=== PATIENT | male | born 1955 | race Caucasian/White ===

== ENCOUNTER 2017-04-30 12:20 | Inpatient (IN) | payer OTHER ==
[~2017-04-30] VITALS: Ht 180.3 cm; Wt 130.8 kg
[2017-04-30] MEDS ORDERED: LOSARTAN POTAS100 MG PO (14:29)
[2017-04-30] MEDS ORDERED: FURO40 PO (14:31)
[2017-04-30] MEDS ORDERED: ATORVASTATIN CA40 MG PO (14:31)
[2017-04-30] MEDS ORDERED: GLIP5 PO (14:32)
[2017-04-30] MEDS ORDERED: POTCHL20ER PO (14:33)
[2017-04-30] MEDS ORDERED: TRAZ100 PO (14:33)
[2017-04-30] MEDS ORDERED: Acetaminophen325 M1 PO (14:34)
[2017-05-01 07:53] LABS: BASOPHILS ABSOLUTE AUTO 0.03 K/mm3 (0.00-0.23); BASOPHILS PERCENT AUTO 1 % (0-2); EOSINOPHILS PERCENT AUTO 3 % (0-6); Hematocrit 39.6 % (37.0-53.0); Hemoglobin 12.7 g/dL (13.5-17.5); IMMATURE GRAN ABSOLUTE AUTO 0.03 K/mm3 (0.00-0.10); IMMATURE GRAN PERCENT AUTO 1 % (0-1); LYMPHOCYTES ABSOLUTE AUTO 1.63 K/mm3 (0.84-5.20); LYMPHOCYTES PERCENT AUTO 27 % (21-46); MONOCYTES ABSOLUTE AUTO 0.61 K/mm3 (0.16-1.47); MONOCYTES PERCENT AUTO 10 % (4-13); Mean Corpuscular HGB 28.7 pg (26.0-34.0); Mean Corpuscular HGB Conc 32.1 g/dL (31.5-36.5); Mean Corpuscular Volume 90 fL (80-100); Mean Platelet Volume 9.5 fL (9.1-12.4); NEUTROPHILS ABSOLUTE AUTO 3.44 K/mm3 (1.96-9.15); NEUTROPHILS PERCENT AUTO 58 % (41-73); Platelet Count 174 K/mm3 (150-400); RDW Coefficient Variation 13.5 % (11.7-14.2); Red Blood Cell Count 4.42 M/mm3 (4.30-5.90); White Blood Cell Count 5.94 K/mm3 (4.00-11.30)
[2017-05-01 08:08] LABS: Alanine Aminotransfer (ALT/SGP 45 U/L (12-78); Albumin, Blood 3.4 g/dL (3.4-5.0); Alk Phos 60 U/L (50-136); Anion Gap 7 mmol/L (6-16); Aspartate Aminotrans (AST/SGOT 20 U/L (12-37); Bilirubin, Total 0.5 mg/dL (0.1-1.0); Blood Urea Nitrogen 28 mg/dL (8-24); Bun/Creatinine Ratio 29.4 (12.0-20.0); CO2, Blood 28 mmol/L (21-32); CPK Creatine Kinase 79 U/L (39-308); Calcium, Blood 8.3 mg/dL (8.5-10.1); Chloride, Blood 108 mmol/L (98-108); Creatinine, Blood 0.95 mg/dL (0.60-1.20); Globulin, Blood 3.3 g/dL (2.2-4.0); Glomerular Filtration Rate >60 (60-); Glucose, Blood 151 mg/dL (70-99); Magnesium, Blood 2.3 mg/dL (1.6-2.4); Potassium, Blood 3.9 mmol/L (3.5-5.5); Sodium, Blood 143 mmol/L (136-145); Total Protein, Blood 6.7 g/dL (6.4-8.2); Troponin I <0.015 ng/mL (0.000-0.040)
[2017-05-01] MEDS ORDERED: AMLO10 PO (22:31)
[2017-05-01] MEDS ORDERED: ASPI81CH PO (22:31)
== END 2017-05-01 23:03 | disposition home or self-care (01) | DRG 287 ==
LOC: ER 12:20 → MEDS 15:21 → PCU 05-01 17:11
PROVIDERS: Internal Medicine Cardiovascular Disease
PROC: 4A023N7 Measurement of Cardiac Sampling and Pressure, Left Heart, Percutaneous Approach (ICD-10-PCS; principal; 2017-05-01)
PROC: B2111ZZ Fluoroscopy of Multiple Coronary Arteries using Low Osmolar Contrast (ICD-10-PCS; 2017-05-01)
DX: I20.8 Other forms of angina pectoris (principal); E66.01 Morbid (severe) obesity due to excess calories; Z68.41 Body mass index [BMI] 40.0-44.9, adult; I10 Essential (primary) hypertension; R94.39 Abnormal result of other cardiovascular function study; R60.0 Localized edema; E11.9 Type 2 diabetes mellitus without complications; G47.33 Obstructive sleep apnea (adult) (pediatric); R93.1 Abnormal findings on diagnostic imaging of heart and coronary circulation; R00.1 Bradycardia, unspecified; I45.10 Unspecified right bundle-branch block; Z79.84 Long term (current) use of oral hypoglycemic drugs; Z82.49 Family history of ischemic heart disease and other diseases of the circulatory system; Z79.82 Long term (current) use of aspirin; Z79.899 Other long term (current) drug therapy
CPT/HCPCS: 36415; 80053; 82550; 82947; 83735; 84484; 85025; 86850; 86900; 86901; 93005; 93010; 93017; 93306; 93458; 94660; 94762; 99152; 99285; C1769; C1894; J0360; J0690; J1644; J2250; J2405; J3010; J7030; Q9967

== ENCOUNTER 2024-04-23 10:29 | Day surgery (SDC) | payer OTHER ==
[~2024-04-23] VITALS: Ht 180.3 cm; Wt 120.8 kg
[~2024-04-23 10:29] MED LIST: AMLO10 PO; ASPI81CH PO; ATORVASTATIN CA40 MG PO; Acetaminophen325 M1 PO; Balanced Salt Epinephrine Irrigation Solution 500 mL IR SCH; FURO40 PO; GLIP5 PO; LOSARTAN POTAS100 MG PO; Lidocaine HCl/Pf 1% 5 ML VIAL XX SCH; Moxifloxacin HCL 0.5 MG/0.1 ML 0.4MLSYR LEFTEYE SCH; PHENYLEPHRINE\\TROPICAMIDE\\TETRACAINE OPHTHALMIC DILATING SOLN LEFTEYE PRN; POTCHL20ER PO; Povidone-Iodine 450 DROP/30 ML Solution LEFTEYE SCH; Povidone-Iodine 450 DROP/30 ML Solution ONE; TRAZ100 PO; Tetracaine HCl/Pf 0.5% Opth Soln 4 ml ONE; Triamcinolone Inj Susp 40 MG / ML 1ML Vial INJ SCH; Triamcinolone Inj Susp 40 MG / ML 1ML Vial ONE
[2024-04-23] MEDS ORDERED: Diazepam 2 MG Tab ONE (10:33)
[2024-04-23] MEDS ORDERED: Diazepam 5 MG Tab ONE (10:33)
--- NOTE | 2024-04-23 10:47 | NUR ---
04/23/24 [place]7 Stephanie Cha PT STATES ANXIETY IS 07/03.
[2024-04-23] MEDS ORDERED: Ondansetron HCl 2 MG / ML 2ML Vial ONE ×2 (11:19→11:20)
[2024-04-23] MEDS ORDERED: Tetracaine HCl 0.5% Opth Soln 15 ml LEFTEYE ONE (11:27)
[2024-04-23 11:59] VITALS: BP 140/83
--- NOTE | 2024-04-23 12:17 | NUR ---
04/23/24 1217 Jen Elam D/C INSTRUCTIONS GIVEN TO PT & PT'S FAMILY, ALL VERBALIZED UNDERSTANDING. PT TOLERATING COFFEE W/O COMPLAINT. DENIES PAIN/NAUSEA. VSS, ON RA. PT LEAVING W/ ALL BELONGINGS. NO VISIBLE SIGNS OF DISTRESS NOTED.
== END 2024-04-23 12:14 | disposition home or self-care (01) ==
LOC: ORSCSDS 10:29
PROVIDERS: Ophthalmology
PROC: 08RK3JZ Replacement of Left Lens with Synthetic Substitute, Percutaneous Approach (ICD-10-PCS; principal; 2024-04-23 12:00)
DX: E11.36 Type 2 diabetes mellitus with diabetic cataract (principal); H25.813 Combined forms of age-related cataract, bilateral; H52.202 Unspecified astigmatism, left eye; I10 Essential (primary) hypertension; G47.33 Obstructive sleep apnea (adult) (pediatric); E78.00 Pure hypercholesterolemia, unspecified; K21.9 Gastro-esophageal reflux disease without esophagitis; E66.9 Obesity, unspecified; Z68.37 Body mass index [BMI] 37.0-37.9, adult; Z79.899 Other long term (current) drug therapy; Z79.84 Long term (current) use of oral hypoglycemic drugs
CPT/HCPCS: 82947; A9270; J2405; J3301; V2632

== ENCOUNTER 2024-05-01 07:58 | Day surgery (SDC) | payer OTHER ==
[~2024-05-01] VITALS: Ht 180.3 cm; Wt 121.6 kg
[~2024-05-01 07:58] MED LIST changes: -Moxifloxacin HCL 0.5 MG/0.1 ML 0.4MLSYR LEFTEYE SCH; +Moxifloxacin HCL 0.5 MG/0.1 ML 0.4MLSYR RIGHTEYE SCH; -PHENYLEPHRINE\\TROPICAMIDE\\TETRACAINE OPHTHALMIC DILATING SOLN LEFTEYE PRN; +PHENYLEPHRINE\\TROPICAMIDE\\TETRACAINE OPHTHALMIC DILATING SOLN RIGHTEYE PRN; -Povidone-Iodine 450 DROP/30 ML Solution LEFTEYE SCH; +Povidone-Iodine 450 DROP/30 ML Solution RIGHTEYE SCH
[2024-05-01] MEDS ORDERED: Diazepam 2 MG Tab ONE (08:22)
[2024-05-01] MEDS ORDERED: Diazepam 5 MG Tab ONE (08:23)
[2024-05-01] MEDS ORDERED: SYNJARDY 12.5-1 EAC3 PO (08:34)
--- NOTE | 2024-05-01 08:43 | NUR ---
05/01/24 0843 Leatha Thakur PATIENT REPORTS ANXIETY OF 3.5/10 PRIOR TO ADMINISTRATION OF 7MG VALIUM PO AT 0828.
[2024-05-01] MEDS ORDERED: Ondansetron HCl 2 MG / ML 2ML Vial ONE (09:00)
[2024-05-01 09:47] VITALS: BP 136/76
== END 2024-05-01 09:50 | disposition home or self-care (01) ==
LOC: ORSCSDS 07:58
PROVIDERS: Ophthalmology
PROC: 08RJ3JZ Replacement of Right Lens with Synthetic Substitute, Percutaneous Approach (ICD-10-PCS; principal; 2024-05-01 09:30)
DX: E11.36 Type 2 diabetes mellitus with diabetic cataract (principal); H25.811 Combined forms of age-related cataract, right eye; H21.81 Floppy iris syndrome; Z96.1 Presence of intraocular lens; I10 Essential (primary) hypertension; Z79.82 Long term (current) use of aspirin; Z79.84 Long term (current) use of oral hypoglycemic drugs; Z79.899 Other long term (current) drug therapy
CPT/HCPCS: 82947; A9270; J2405; J3301; V2632